=== PATIENT | female | born 1970 | race African-American/Black ===

== ENCOUNTER 2017-12-26 13:17 | Emergency (ER) | payer OTHER ==
[~2017-12-26] VITALS: Ht 167.6 cm; Wt 96.4 kg
[~2017-12-26 13:17] MED LIST: BENZ1TAB70; CHLO100T24 PO; FLUPH2.5I IM; LISI-662 PO; METF850T2 PO; OMEP20CA10 PO; TRADJENTA
[2017-12-26] MEDS ORDERED: CHLO100T24 PO (13:26)
[2017-12-26] MEDS ORDERED: ZIPR40CA2 PO (13:26)
[2017-12-26] MEDS ORDERED: FLUP5 IM (13:26)
[2017-12-26] MEDS ORDERED: QUET100T PO (13:26)
[2017-12-26 16:03] LABS: BASOPHILS % (AUTO) 0.3 % (0.0-2.0); EOSINOPHILS % (AUTO) 0.2 % (1.0-6.0); HEMATOCRIT 37.6 % (36-46); HEMOGLOBIN 12.5 g/dL (12.0-16.0); LYMPHOCYTES % (AUTO) 6.9 % (22.0-44.0); MEAN CORPUSCULAR HEMOGLOBIN 28.5 pg (26.0-34.0); MEAN CORPUSCULAR HGB CONC 33.4 G/dL (31.0-37.0); MEAN CORPUSCULAR VOLUME 86 fL (80-100); MONOCYTES # (AUTO) 0.9 K/uL (0.1-1.0); MONOCYTES % (AUTO) 6.3 % (2.0-9.0); NEUTROPHILS # (AUTO) 12.4 K/uL (1.8-7.7); PLATELET COUNT (AUTO) 375 K/uL (150-450); RED CELL DISTRIBUTION WIDTH 14.1 % (11.5-14.5)
[2017-12-26 16:08] LABS: NEUTROPHILS % (AUTO) 86.3 % (40.0-70.0)
[2017-12-26 16:29] LABS: CREATININE 1.3 mg/dL (0.60-1.30)
[2017-12-26 16:31] LABS: APPEARANCE,URINE CLOUDY (CLEAR); GLUCOSE, URINE (UA) NEGATIVE (NEGATIVE); KETONES,URINE TRACE mg/dL (NEGATIVE); LEUKOCYTE ESTERASE ,URINE SMALL (NEGATIVE); NITRATE,URINE POSITIVE (NEGATIVE); OCCULT BLOOD,URINE NEGATIVE (NEGATIVE); PROTEIN,URINE TRACE (NEGATIVE)
[2017-12-26 16:35] LABS: ALBUMIN 3.9 g/dL (3.4-5.0); BILIRUBIN,TOTAL 0.6 mg/dL (0.1-1.0); TOTAL PROTEIN, SERUM 7.9 g/dL (6.4-8.2)
[2017-12-26 16:43] LABS: BILIRUBIN,URINE PRELIM. POSITIVE (NEGATIVE)
[2017-12-26 16:44] LABS: RBC,URINE 0-2 /HPF (0-2)
[2017-12-26 16:45] LABS: BACTERIA,URINE Moderate /HPF (None Seen); CALCIUM OXALATE CRYSTALS,UR Rare /LPF (None Seen); SQUAMOUS EPITHELIAL CELL,UR Many /LPF (None Seen)
[2017-12-26 17:35] VITALS: BP 109/60
== END 2017-12-26 17:37 | disposition home or self-care (01) ==
LOC: EMS 13:19
DX: N30.90 Cystitis, unspecified without hematuria (principal); E11.9 Type 2 diabetes mellitus without complications; K21.9 Gastro-esophageal reflux disease without esophagitis; I10 Essential (primary) hypertension
CPT/HCPCS: 87086; 99284

== ENCOUNTER 2021-11-19 08:00 | Emergency (ER) | payer OTHER ==
[~2021-11-19] VITALS: Ht 167.6 cm; Wt 101.8 kg
[~2021-11-19 08:00] MED LIST changes: -BENZ1TAB70; +BENZ1TAB70 PO; -CHLO100T24 PO; +CHLO100T42 PO; +FLUP5TAB31 PO; -FLUPH2.5I IM; -LISI-662 PO; +LISI-894 PO; +METF-445 PO; -METF850T2 PO; -OMEP20CA10 PO; +OMEP20CA12 PO; +QUET100T PO; -TRADJENTA; +ZIPR40CA2 PO
[2021-11-19] MEDS ORDERED: AMLO-258 PO (08:43)
[2021-11-19] MEDS ORDERED: FERR325T27 PO (08:43)
[2021-11-19] MEDS ORDERED: SUCR1TAB PO (08:43)
[2021-11-19] MEDS ORDERED: TOPI25 PO (08:43)
[2021-11-19] MEDS ORDERED: BUSP10TA23 PO (08:43)
[2021-11-19] MEDS ORDERED: DOXE50CA70 PO (08:43)
[2021-11-19] MEDS ORDERED: ATOR10TA84 PO (08:43)
[2021-11-19] MEDS ORDERED: VENL-53 PO (08:43)
[2021-11-19] MEDS ORDERED: INSULIN REGULAR, HUMAN 100 UNITS/ML IVP ONE (09:45)
[2021-11-19] MEDS ORDERED: SODIUM CHLORIDE 0.9% 2,000 ML IV ONE (09:45)
[2021-11-19 09:49] LABS: BASOPHILS % (AUTO) 0.4 % (0.0-2.0); EOSINOPHILS % (AUTO) 4.1 % (1.0-6.0); HEMATOCRIT 39.4 % (36-46); HEMOGLOBIN 13.2 g/dL (12.0-16.0); LYMPHOCYTES # (AUTO) 2.8 K/uL (1.0-4.8); LYMPHOCYTES % (AUTO) 29.4 % (22.0-44.0); MEAN CORPUSCULAR HGB CONC 33.5 G/dL (31.0-37.0); MEAN CORPUSCULAR VOLUME 84 fL (80-100); MONOCYTES # (AUTO) 0.5 K/uL (0.1-1.0); MONOCYTES % (AUTO) 5.4 % (2.0-9.0); NEUTROPHILS # (AUTO) 5.9 K/uL (1.8-7.7); NEUTROPHILS % (AUTO) 60.7 % (40.0-70.0); PLATELET COUNT (AUTO) 413 K/uL (150-450); RED BLOOD CELL COUNT(AUTO) 4.71 MIL/uL (4.00-5.20); RED CELL DISTRIBUTION WIDTH 13.4 % (11.5-14.5)
[2021-11-19 09:59] LABS: ANION GAP 12 mmol/L (8-16); CALCIUM, TOTAL 9.8 mg/dL (8.8-10.5); CARBON DIOXIDE 24 mmol/L (22-29); CHLORIDE 100 mmol/L (98-107); CREATININE 1.16 mg/dL (0.60-1.30); GLOMERULAR FILTR. RATE CALC 59 mL/min (>60); GLUCOSE,RANDOM 397 mg/dL (70-110); POTASSIUM 3.2 mmol/L (3.5-5.1); SODIUM SERUM 136 mmol/L (136-145); UREA NITROGEN, BLOOD 8 mg/dL (7-18)
[2021-11-19 10:11] LABS: ALANINE AMINOTRANSFERASE 46 U/L (12-78); ALKALINE PHOSPHATASE 128 U/L (46-116); ASPARTATE AMINOTRANSFERASE 22 U/L (15-37); BILIRUBIN,TOTAL 0.5 mg/dL (0.1-1.0); LIPASE 81 U/L (73-393); TOTAL PROTEIN, SERUM 8.1 g/dL (6.4-8.2)
[2021-11-19 11:01] LABS: GLUCOSE,POINT OF CARE 203 MG/DL (70-110)
[2021-11-19] MEDS ORDERED: POTASSIUM CHLORIDE 10% 40 MEQ/30 ML LIQUID UDCUP PO ONE (11:15)
[2021-11-19] MEDS ORDERED: METF-1185 PO (12:02)
[2021-11-19 12:26] VITALS: BP 117/72
== END 2021-11-19 12:34 | disposition home or self-care (01) ==
LOC: EMS 08:03
DX: E11.65 Type 2 diabetes mellitus with hyperglycemia (principal); E87.6 Hypokalemia; I10 Essential (primary) hypertension; F41.9 Anxiety disorder, unspecified; Z79.899 Other long term (current) drug therapy
CPT/HCPCS: 36415; 80053; 82009; 82962; 83690; 84484; 85025; 93005; 96361; 96374; 99284; G0480; J1815

== ENCOUNTER 2024-05-10 18:31 | Emergency (ER) | payer MEDICAID, OTHER ==
[~2024-05-10] VITALS: Ht 167.6 cm; Wt 71.8 kg
[~2024-05-10 18:31] MED LIST changes: +AMLO-258 PO; +ATOR10TA PO; +BUSP10TA23 PO; +DOXE50CA70 PO; +FERR325T27 PO; +METF-1185 PO; -OMEP20CA12 PO; -QUET100T PO; +SUCR1TAB2 PO; +TOPI25 PO; +VENL-53 PO; -ZIPR40CA2 PO; +ZIPR40CA38 PO
[2024-05-10 18:47] VITALS: TEMP 98
[2024-05-10 19:24] LABS: BASOPHILS % (AUTO) 0.3 % (0.0-2.0); EOSINOPHILS % (AUTO) 5.3 % (1.0-6.0); HEMATOCRIT 40.6 % (36-46); HEMOGLOBIN 13.1 g/dL (12.0-16.0); LYMPHOCYTES # (AUTO) 2.4 K/uL (1.0-4.8); LYMPHOCYTES % (AUTO) 35.3 % (22.0-44.0); MEAN CORPUSCULAR HEMOGLOBIN 28.9 pg (26.0-34.0); MEAN CORPUSCULAR HGB CONC 32.2 G/dL (31.0-37.0); MEAN CORPUSCULAR VOLUME 90 fL (80-100); MONOCYTES # (AUTO) 0.4 K/uL (0.1-1.0); MONOCYTES % (AUTO) 6.4 % (2.0-9.0); NEUTROPHILS # (AUTO) 3.5 K/uL (1.8-7.7); NEUTROPHILS % (AUTO) 52.7 % (40.0-70.0); PLATELET COUNT (AUTO) 359 K/uL (150-450); RED BLOOD CELL COUNT(AUTO) 4.54 MIL/uL (4.00-5.20); RED CELL DISTRIBUTION WIDTH 13.9 % (11.5-14.5); WHITE BLOOD COUNT (AUTO) 6.7 K/uL (4.5-11.0)
[2024-05-10 19:31] LABS: ANION GAP 10 mmol/L (8-16); CALCIUM, TOTAL 9.6 mg/dL (8.8-10.5); CARBON DIOXIDE 28 mmol/L (22-29); CHLORIDE 104 mmol/L (98-107); CREATININE 1.03 mg/dL (0.60-1.30); GLOMERULAR FILTR. RATE CALC > 60 mL/min (>60); GLUCOSE,RANDOM 137 mg/dL (70-110); POTASSIUM 4.1 mmol/L (3.5-5.1); SODIUM SERUM 142 mmol/L (136-145); UREA NITROGEN, BLOOD 5 mg/dL (7-18)
[2024-05-10 20:58] LABS: ALCOHOL, BLOOD (SERUM) < 3 mg/dL (0-10)
[2024-05-10 21:34] LABS: COVID AG,FIA SOURCE NASAL SWAB
[2024-05-10 21:52] LABS: SARS-COV2 (COVID) ANTIGEN,FIA Negative (Negative)
[2024-05-10 22:00] LABS: AMPHET/METH SCREEN,URINE NEGATIVE (NEGATIVE); BARBITURATE SCREEN, URINE NEGATIVE (NEGATIVE); BENZODIAZEPINES SCREEN,URINE NEGATIVE (NEGATIVE); CANNABINOID SCREEN,URINE NEGATIVE (NEGATIVE); COCAINE SCREEN,URINE NEGATIVE (NEGATIVE); METHADONE SCREEN, URINE NEGATIVE (NEGATIVE); OPIATE SCREEN,URINE NEGATIVE (NEGATIVE); PHENCYCLIDINE SCREEN,URINE NEGATIVE (NEGATIVE)
[2024-05-10 22:01] LABS: ALCOHOL, URINE DRUG SCREEN NEGATIVE (NEGATIVE)
[2024-05-10] MEDS: ChlorproMAZINE HCL 100 MG TABLET PO ONE (23:00)
[2024-05-10] MEDS: FluPHENAZine HCL 5 MG TABLET PO ONE (23:01)
[2024-05-10 23:04] VITALS: BP 149/87; PULSE 91; RESP 16; O2SAT 98
[2024-05-10] MEDS: MELATONIN 3 MG TABLET PO ONE (23:35)
[2024-05-10] MEDS: LORazepam 1 MG TABLET PO ONE (23:35)
== END 2024-05-11 06:26 | disposition home or self-care (01) ==
LOC: EMS 18:31
DX: G47.9 Sleep disorder, unspecified (principal); F20.9 Schizophrenia, unspecified; E11.9 Type 2 diabetes mellitus without complications; I10 Essential (primary) hypertension; K21.9 Gastro-esophageal reflux disease without esophagitis; F41.9 Anxiety disorder, unspecified; Z79.84 Long term (current) use of oral hypoglycemic drugs; Z79.899 Other long term (current) drug therapy; Z20.822 Contact with and (suspected) exposure to COVID-19
CPT/HCPCS: 99284; 87426; 80048; 85025; 36415; 80307; G0480

== ENCOUNTER 2024-05-12 18:46 | Emergency (ER) | payer MEDICAID ==
[~2024-05-12] VITALS: Ht 167.6 cm; Wt 71.8 kg
[2024-05-12 19:30] VITALS: TEMP 98.7
[2024-05-12 21:13] LABS: BASOPHILS % (AUTO) 0.7 % (0.0-2.0); EOSINOPHILS % (AUTO) 2.1 % (1.0-6.0); HEMATOCRIT 39.9 % (36-46); HEMOGLOBIN 13.2 g/dL (12.0-16.0); LYMPHOCYTES # (AUTO) 1.4 K/uL (1.0-4.8); LYMPHOCYTES % (AUTO) 23.3 % (22.0-44.0); MEAN CORPUSCULAR HEMOGLOBIN 29.6 pg (26.0-34.0); MEAN CORPUSCULAR VOLUME 90 fL (80-100); MONOCYTES # (AUTO) 0.5 K/uL (0.1-1.0); NEUTROPHILS # (AUTO) 3.9 K/uL (1.8-7.7); NEUTROPHILS % (AUTO) 64.9 % (40.0-70.0); PLATELET COUNT (AUTO) 344 K/uL (150-450); RED BLOOD CELL COUNT(AUTO) 4.46 MIL/uL (4.00-5.20); RED CELL DISTRIBUTION WIDTH 13.7 % (11.5-14.5)
[2024-05-12 21:17] LABS: ANION GAP 11 mmol/L (8-16); CALCIUM, TOTAL 9.1 mg/dL (8.8-10.5); CARBON DIOXIDE 27 mmol/L (22-29); CHLORIDE 104 mmol/L (98-107); CREATININE 1.04 mg/dL (0.60-1.30); GLOMERULAR FILTR. RATE CALC > 60 mL/min (>60); GLUCOSE,RANDOM 112 mg/dL (70-110); POTASSIUM 3.8 mmol/L (3.5-5.1); SODIUM SERUM 142 mmol/L (136-145); UREA NITROGEN, BLOOD 5 mg/dL (7-18)
[2024-05-12 21:45] LABS: ALCOHOL, BLOOD (SERUM) < 3 mg/dL (0-10)
[2024-05-12 23:14] VITALS: BP 134/98; PULSE 91; RESP 18; O2SAT 100
[2024-05-13] MEDS ORDERED: BENZ2TAB84 PO (00:13)
[2024-05-16] MEDS ORDERED: LISI40TA9 PO (17:56)
[2024-05-16] MEDS ORDERED: FLUP5TAB8 PO (17:56)
[2024-05-16] MEDS ORDERED: VENL-66 PO (17:56)
[2024-05-16] MEDS ORDERED: VALB40CA2 PO (17:56)
[2024-05-16] MEDS ORDERED: MELA5TAB40 PO (17:56)
[2024-05-16] MEDS ORDERED: ERTU5TAB PO (17:56)
[2024-05-16] MEDS ORDERED: METF-1211 PO (17:56)
[2024-05-16] MEDS ORDERED: FLUP25VI5 IM (17:56)
[2024-05-16] MEDS ORDERED: DICY-1 PO (17:56)
[2024-05-19] MEDS ORDERED: VENL37.57 PO (14:18)
[2024-05-19] MEDS ORDERED: MELA5TAB40 PO (14:18)
[2024-05-19] MEDS ORDERED: DOXE50CA70 PO (14:18)
[2024-05-19] MEDS ORDERED: OMEG100033 PO (14:18)
[2024-05-19] MEDS ORDERED: BENZ2TAB84 PO (14:18)
[2024-05-19] MEDS ORDERED: FLUP10TA28 PO (14:18)
[2024-05-19] MEDS ORDERED: LISI-663 PO (15:20)
== END 2024-05-13 00:23 | disposition home or self-care (01) ==
LOC: EMS 18:46
DX: G24.01 Drug induced subacute dyskinesia (principal); E11.9 Type 2 diabetes mellitus without complications; I10 Essential (primary) hypertension; K21.9 Gastro-esophageal reflux disease without esophagitis; F41.9 Anxiety disorder, unspecified; F20.9 Schizophrenia, unspecified; Z79.84 Long term (current) use of oral hypoglycemic drugs; Z79.899 Other long term (current) drug therapy
CPT/HCPCS: 99283; 80048; 85025; 36415; G0480

== ENCOUNTER 2024-05-14 20:29 | Emergency (ER) | payer MEDICAID ==
[~2024-05-14] VITALS: Ht 167.6 cm; Wt 71.8 kg
[~2024-05-14 20:29] MED LIST changes: +BENZ2TAB84 PO
[2024-05-14 20:46] VITALS: TEMP 98.9
[2024-05-14] MEDS: MELATONIN 5 MG TABLET PO ONE (22:07)
[2024-05-14 22:48] VITALS: BP 128/80; PULSE 80; RESP 18; O2SAT 99
[2024-05-16] MEDS ORDERED: FLUP25VI5 IM (17:56)
[2024-05-16] MEDS ORDERED: VALB40CA2 PO (17:56)
[2024-05-16] MEDS ORDERED: VENL-66 PO (17:56)
[2024-05-16] MEDS ORDERED: LISI40TA9 PO (17:56)
[2024-05-16] MEDS ORDERED: MELA5TAB40 PO (17:56)
[2024-05-16] MEDS ORDERED: FLUP5TAB8 PO (17:56)
[2024-05-16] MEDS ORDERED: DICY-1 PO (17:56)
[2024-05-16] MEDS ORDERED: METF-1211 PO (17:56)
[2024-05-16] MEDS ORDERED: ERTU5TAB PO (17:56)
[2024-05-19] MEDS ORDERED: DOXE50CA70 PO (14:18)
[2024-05-19] MEDS ORDERED: MELA5TAB40 PO (14:18)
[2024-05-19] MEDS ORDERED: FLUP10TA28 PO (14:18)
[2024-05-19] MEDS ORDERED: OMEG100033 PO (14:18)
[2024-05-19] MEDS ORDERED: BENZ2TAB84 PO (14:18)
[2024-05-19] MEDS ORDERED: VENL37.57 PO (14:18)
[2024-05-19] MEDS ORDERED: LISI-663 PO (15:20)
== END 2024-05-14 23:14 | disposition home or self-care (01) ==
LOC: EMS 20:29
DX: G24.01 Drug induced subacute dyskinesia (principal); F41.9 Anxiety disorder, unspecified; E11.9 Type 2 diabetes mellitus without complications; F20.9 Schizophrenia, unspecified; I10 Essential (primary) hypertension; K21.9 Gastro-esophageal reflux disease without esophagitis; Z79.84 Long term (current) use of oral hypoglycemic drugs; Z79.899 Other long term (current) drug therapy
CPT/HCPCS: 82962; 99282; Z7502